=== PATIENT | male | born 1970 | race Hispanic/Latino ===

== ENCOUNTER 2021-02-20 20:07 | Emergency (ER) | payer SELFPAY ==
--- NOTE | ~2021-02-20 | XR_ITS ---
XR chest 2V DATE: 02/20/2021 21:41 INDICATION: Fever. Hypertension. Slurred speech. TECHNIQUE: AP and lateral views COMPARISON: None FINDINGS: Normal heart size. There is aortic tortuosity. No hilar or mediastinal enlargement. There is discoid atelectasis or scarring in the right mid and left lower lung [place]. No pulmonary in filtrate or consolidation, pleural effusion or pulmonary vascular congestion or pneumothorax. Surgical clips, right upper quadrant, consistent with cholecystectomy. IMPRESSION: Mild focal discoid atelectasis or scarring in the right mid and left lower lung Reviewed, dictated and finalized at [facility]. IMPRESSION: Mild focal discoid atelectasis or scarring in the right mid and lef t lower lung
--- NOTE | ~2021-02-20 | CT_ITS ---
EXAMINATION: CT brain wo con DATE: 02/20/2021 21:28 INDICATION: Dizziness. Fever. TECHNIQUE: Computed tomography (CT) of the head was performed without intravenous contrast. The mA wa s adjusted according to patient size. Iterative reconstruction technique was employed. Exam dose: 60 5.33 mGy-cm total exam DLP. COMPARISON: None FINDINGS: No intracranial mass lesion or hemorrhage or cerebrovascular accident is evident. No midlin e shift or mass effect. Normal ventricular size. Normal bahena-white matter differentiation. No subdural or epidural hematoma. 12 mm mucus retention cyst or polyp of left maxillary sinus. Smaller, mucus retention cyst of each ma xillary sinus. There is patchy soft tissue thickening of the ethmoid air cells. Old blowout fracture medial wall of right orbit. The mastoid air cells are normally developed and aerated. No fracture or bone destruction of the cranial vault. IMPRESSION: No significant intracranial abnormality Reviewed, dictated and finalized at [facility]. Reviewed, dictated and finalized at [facility].
[2021-02-20 20:50] VITALS: BP 168/96; PULSE 107; RESP 17; TEMP 38.4; O2SAT 97
[2021-02-20 20:57] LABS: Glucose Point of Care 113 mg/dl (65-105)
--- NOTE | 2021-02-20 20:59 | ECG_ITS ---
Measurements Intervals [place] Rate: 103 P: 22 W[place]: 127 QRS: 29 QRSD: 95 T: 14 QT: 329 QTc: 433 Interpretive Statements SINUS TACHYCARDIA CONSIDER INFERIOR INFARCT, AGE INDETERMINATE BASELINE ARTIFACT- I, II, AVR ABNORMAL ECG Electronically Signed On 02-22-2021 15:21:26 CDT by Robby Gomez D.O.
[2021-02-20 21:15] VITALS: BP 146/97; PULSE 103; RESP 25; O2SAT 97
[2021-02-20 21:16] LABS: Basophils Percent Auto 0.3 % (0.2-1.2); Eosinophils Percent Auto 0.5 % (0-4.4); Hematocrit 43.7 % (42.0-52.0); Hemoglobin 15.2 g/dL (14.0-18.0); Immature Granulocyte Absolute 0.02 K/mm3 (0.00-0.031); Immature Granulocyte Percent A 0.2 % (0-0.5); Lymphocytes Absolute Auto 1.28 K/mm3 (0.9-3.2); Lymphocytes Percent Auto 14.8 % (18.3-44.2); Mean Corpuscular HGB Conc 34.8 g/dl (32-36); Mean Corpuscular Hemoglobin 29.7 pg (26-34); Mean Corpuscular Volume 85.4 fl (80-100); Mean Platelet Volume 9.9 fl (7.4-10.4); Monocytes Absolute Auto 0.4 K/mm3 (0.1-0.6); Monocytes Percent Auto 4.8 % (2.6-8.5); Neutrophils Absolute Auto 6.9 K/mm3 (1.3-6.7); Neutrophils Percent Auto 79.4 % (45.5-73.1); Platelet Count Result 193 k/mm3 (150-375); Red Blood Count 5.12 M/mm3 (4.6-6.20); Red Cell Distribution Width 11.8 % (11.5-14.5); White Blood Count 8.7 K/mm3 (4.5-10.0)
--- NOTE | 2021-02-20 21:22 | PC.NURSE ---
Pt to XY and CT via stretcher at this time. Pt alert and upright upon transport out of ED.
[2021-02-20 21:24] LABS: INR 0.9
[2021-02-20 21:25] LABS: Partial Thromboplastin Time 28.6 SECONDS (22.3-36.8)
[2021-02-20 21:28] LABS: Alanine Aminotransferase 28 U/L (4-50); Albumin Level 4.6 g/dL (3.5-5.1); Alkaline Phosphatase 134 U/L (38-126); Anion Gap 11 mmol/L (8-16); Aspartate Amino Transferase 30 U/L (17-59); Bilirubin,Total 0.9 mg/dL (0.2-1.3); Blood Urea Nitrogen 11 mg/dL (9-20); CRP 1.7 mg/dL (<1.0); Calcium 9.5 mg/dL (8.4-10.2); Carbon Dioxide 25 mmol/L (22-30); Chloride 104 mmol/L (98-107); Estimated CRCL calculation 110 ml/min; Estimated Glomerular Filt Rate > 60; Glucose 111 mg/dL (75-110); Potassium 3.8 mmol/L (3.4-5.0); Sodium 140 mmol/L (137-145)
--- NOTE | 2021-02-20 22:24 | ED.GENADULT ---
HPI - General Adult General Chief complaint: Recheck/Abnormal Lab/Rx Stated complaint: blood pressure 173/110, temp 101 Time Seen by Provider: 02/20/21 21:11 History of Present Illness HPI narrative: Patient 50-year-old gentleman who presents the emergency department with chief complaint of fever and elevated blood pressure. Patient reports that today he was outside in the heat and then came back in and noticed that he had a temperature of 101 the patient states that but had a little bit of a slurred speech but no focal neurological deficits reports that he felt globally weak the family checked his blood pressure and his diastolic was 100 and patient also had a temperature of 101. Patient denies nausea denies vomiting denies abdominal pain denies diaphoresis. Patient states currently he feels fine. Related Data Allergies Allergy/AdvReac Type Severity Reaction Status Date / Time No Known Allergies Allergy Verified 02/20/21 22:31 Review of Systems Review of Systems: Narrative: A 10 system review of systems was completed on the patient and is negative except for what is stated in the HPI. Nursing and ancillary documentation was reviewed. [facility] Social History Social History Gender identity (if verbalized by the patient): Male Exam Narrative: Exam Narrative: GENERAL: Well-appearing, well-nourished, and in no acute distress. HEAD: Normocephalic, atraumatic. EYES: PERRLA and EOMI. ENT: Nares clear, no rhinorrhea or epistaxis. Mucous membranes moist. NECK: Supple. CHEST: Clear to auscultation. No respiratory distress. HEART: Regular rate and rhythm. No murmur heard. Normal peripheral pulses. ABDOMEN: Soft, nontender, nondistended, normal active bowel sounds. EXTREMITIES: Normal range of motion. No edema. SKIN: Warm, dry, no rash. NEURO: No focal deficits. Alert and oriented x3. PSYCH: Normal mood and affect. Course Vital Signs Vital signs: Vital Signs Temperature 38.4 C H 02/20/21 20:50 Pulse Rate 107 H 02/20/21 20:50 Respiratory Rate 17 02/20/21 20:50 Blood Pressure 168/96 H 02/20/21 20:50 Pulse Oximetry 97 02/20/21 20:50 Temperature 38.4 C H 02/20/21 20:50 Pulse Rate 99 02/20/21 23:26 Respiratory Rate 24 H 02/20/21 23:26 Blood Pressure 135/92 H 02/20/21 23:26 Pulse Oximetry 100 02/20/21 23:26 Medical Decision Making Vital Signs Vital Signs: Vital Signs Temperature 38.4 C H 02/20/21 20:50 Pulse Rate 107 H 02/20/21 20:50 Respiratory Rate 17 02/20/21 20:50 Blood Pressure 168/96 H 02/20/21 20:50 Pulse Oximetry 97 02/20/21 20:50 Temperature 38.4 C H 02/20/21 20:50 Pulse Rate 99 02/20/21 23:26 Respiratory Rate 24 H 02/20/21 23:26 Blood Pressure 135/92 H 02/20/21 23:26 Pulse Oximetry 100 02/20/21 23:26 Lab Data Result diagrams: 02/20/21 21:06 02/20/21 21:06 Labs: Lab Results 02/20/21 02/20/21 02/20/21 Range/Units 20:53 21:06 21:06 WBC 8.7 (4.5-10.0) K/mm3 RBC 5.12 (4.6-6.20) M/mm3 Hgb 15.2 (14.0-18.0) g/dL Hct 43.7 (42.0-52.0) % MCV 85.4 (80-100) fl MCH 29.7 (26-34) pg MCHC 34.8 (32-36) g/dl RDW 11.8 (11.5-14.5) % Plt Count 193 (150-375) k/mm3 MPV 9.9 (7.4-10.4) fl Immature Gran % (Auto) 0.2 (0-0.5) % Neut % (Auto) 79.4 H (45.5-73.1) % Lymph % (Auto) 14.8 L (18.3-44.2) % [place] % (Auto) 4.8 (2.6-8.5) % Eos % (Auto) 0.5 (0-4.4) % Baso % (Auto) 0.3 (0.2-1.2) % Lymph # (Auto) 1.28 (0.9-3.2) K/mm3 [place] # (Auto) 0.4 (0.1-0.6) K/mm3 Eos # (Auto) 0.0 (0-0.3) K/mm3 Baso # (Auto) 0.0 (0.0-0.1) K/mm3 Abs Immat Gran (auto) 0.02 (0.00-0.031) K/mm3 Absolute Neuts (auto) 6.9 H (1.3-6.7) K/mm3 Absolute Nucleated RBC 0.0 (0.0-0.012) K/mm3 Nucleated RBC % 0.0 (0.0-0.2) % PT 13.0 (11.1-14.7) Seconds INR 0.9 APTT 28.6 (22.3-36.8
[2021-02-20 22:28] VITALS: BP 147/92; PULSE 93; RESP 26; O2SAT 98
[2021-02-20] MEDS: SODIUM CHLORIDE 0.9% IV 1,000 ML 999 ML IV CONT (22:29)
[2021-02-20 22:40] LABS: Add Urine Microscopic? YES; Appearance Urine Clear (Clear); Bilirubin Urine Negative (Negative); Blood Urine Negative (Negative); Color Urine Amber (Yellow); Glucose Urine UA Negative (Negative); Ketones Urine Negative (Negative); Leukocyte Esterase Ur Negative LEU/UL (Negative); Mucus Urine Rare /lpf; Nitrate Urine Negative (Negative); Protein Urine 1+ mg/dL (Negative); Specific Grav Ur 1.025 (1.001-1.035); Urobilinogen Urine Negative mg/dL (<2.0); WBC Urine 0-3 /hpf
[2021-02-20 22:49] LABS: Lactic Acid Reflex 1.4 mmol/L (0.7-2.1)
[2021-02-20 23:26] VITALS: BP 135/92; PULSE 99; RESP 24; O2SAT 100
[2021-02-21 00:07] VITALS: BP 135/77; PULSE 95; RESP 28; O2SAT 97
== END 2021-02-21 00:07 | disposition home or self-care (01) ==
PROVIDERS: Emergency Medicine; Emergency Provider Emergency Medicine
DX: R50.9 Fever, unspecified (principal); R00.0 Tachycardia, unspecified; R94.31 Abnormal electrocardiogram [ECG] [EKG]
CPT/HCPCS: 36415; 70450; 71046; 80053; 81001; 82948; 83605; 85025; 85610; 85730; 86140; 87040; 93005; 96360; 99284; J7030

== ENCOUNTER 2023-07-20 19:27 | Emergency (ER) | payer SELFPAY ==
[2023-07-20 19:37] VITALS: BP 132/83; PULSE 41; RESP 16; TEMP 37.2; O2SAT 97
[2023-07-20 20:17] LABS: Glucose Point of Care 339 mg/dl (65-105)
--- NOTE | 2023-07-20 20:29 | ED.GENADULT ---
HPI - General Adult General Chief complaint: Unspecified Stated complaint: Hyperglycemia Time Seen by Provider: 07/20/23 20:17 Source: patient, family (Daughter) and RN notes reviewed Mode of arrival: ambulatory Limitations: no limitations History of Present Illness HPI narrative: Patient presents today complaining of hyperglycemia. Around 1:00 p.m. today he started feeling bad at work. He went home and laid down. He checked his blood sugar around 5:30 and was 480. At that time he took his evening dose of metformin. States he was feeling very thirsty at work today and drink a large soda. Patient is noncompliant with checking his blood sugars at home. States he does know what his average blood sugars are. Upon arrival at [facility] today, his blood sugar was 339, and patient states he is feeling much better. Related Data Home Medications Medication Instructions Recorded Confirmed atorvastatin 20 mg tablet 20 mg PO HS 07/20/23 07/20/23 lisinopril 20 2 tablet PO DAILY 07/20/23 07/20/23 mg-hydrochlorothiazide 12.5 mg tablet metformin 500 mg tablet,extended 1,000 mg PO DAILY 07/20/23 07/20/23 release 24 hr Allergies Allergy/AdvReac Type Severity Reaction Status Date / Time No Known Allergies Allergy Verified 07/20/23 19:52 Review of Systems Review of Systems: CONSTITUTIONAL: Denies body aches, fever, chills, or sweats. EYES: Denies visual changes, redness, or discharge. ENT: Denies rhinorrhea, congestion, sore throat, or otalgia. CARDIOVASCULAR: Denies chest pain, palpitations, or edema. RESPIRATORY: Denies cough or dyspnea. GASTROINTESTINAL: Denies abdominal pain, nausea, vomiting, or diarrhea. GENITOURINARY: Denies dysuria or hematuria. SKIN: Denies rash, itching, or wounds. MUSCULOSKELETAL: Denies back pain, joint pain, or myalgia. NEUROLOGIC: Denies headache, numbness, tingling, or weakness. PSYCH: Denies depression or anxiety. [facility] Past Medical History Medical History (Updated 07/20/23 @ 20:35 by Raina Morales, SUNIL, ) Diabetes Social History Social History Gender identity (if verbalized by the patient): Male Comments At time of signature, I have reviewed and agree with nursing past medical, surgical, social and family history unless otherwise noted. Please see nursing chart for further information. There is no relevant family history pertinent to the presenting complaint Exam Narrative: GENERAL: Well-appearing, well-nourished, and in no acute distress. HEAD: Normocephalic, atraumatic. EYES: EOMI. No redness or drainage. Conjunctivae normal. ENT: Mucous membranes pink and moist. Throat normal. Uvula midline. NECK: Normal AROM. Supple. No lymphadenopathy. CHEST: No respiratory distress. Clear to auscultation. HEART: Regular rate and rhythm. No murmur appreciated. Normal peripheral pulses. EXTREMITIES: Normal range of motion. No edema. SKIN: Warm, dry, no rash. Capillary refill normal. Normal skin turgor. NEURO: No focal deficits. Alert and oriented x3. Gait steady. PSYCH: Normal affect. No signs of depression or anxiety. Course Course Level of Care: Express Care Visit Vital Signs Vital signs: Vital Signs Temperature 99.0 F 07/20/23 19:37 Pulse Rate 41 L 07/20/23 19:37 Respiratory Rate 16 07/20/23 19:37 Blood Pressure 132/83 07/20/23 19:37 Pulse Oximetry 97 07/20/23 19:37 Oxygen Delivery Room Air 07/20/23 19:37 Temperature 99.0 F 07/20/23 19:37 Pulse Rate 41 L 07/20/23 19:37 Respiratory Rate 16 07/20/23 19:37 Blood Pressure 132/83 07/20/23 19:37 Pulse Oximetry 97 07/20/23 19:37 Oxygen Delivery Room Air 07/20/23 19:37 Reviewed Medical Decision Making MDM Narrative Medical decision making narrative: Patient states he is feeling good without any current symptoms. As his blood sugar has come down significantly from 3 hours ago, I do not feel th
== END 2023-07-20 20:38 | disposition home or self-care (01) ==
PROVIDERS: Emergency Provider Nurse Practitioner
DX: E11.65 Type 2 diabetes mellitus with hyperglycemia (principal); Z79.84 Long term (current) use of oral hypoglycemic drugs
CPT/HCPCS: 82948; 99212; G0463